=== PATIENT | male | born 1965 | race Hispanic/Latino ===

== ENCOUNTER 2019-04-21 11:17 | Day surgery (SDC) | payer BC ==
--- NOTE | 2019-04-20 10:38 | EKG ---
Test Date: 2019-04-19 Test Time: 15:29:58 Client Services Vice President: MERON MEASUREMENT RESULTS: Intervals: Rate: 83 AL: 124 QRSD: 90 QT: 352 QTc: 413 Mcgregor: P: 46 AL: 124 QRS: 16 T: 12 INTERPRETIVE STATEMENTS: Normal sinus rhythm Minimal voltage criteria for LVH, may be normal variant Borderline ECG No previous ECG available for comparison Electronically Signed On 04-20-19 10:38:10 CDT by Rajendra Cole
--- OUTSIDE RECORDS SUMMARY | 2019-04-21 11:23 | XMS REPORT | Clinical Summary ---
:1965 Author Organization [facility] Address [address] [place] [address] Care Team Providers Name Role Phone Bettina Oliver MD Primary Care Provider Allergies No Known Allergies Medications Medication Sig Dispensed Refills Start Date End Date Status fluticasone 1 spray by 0 Active (FLONASE) 50 Each Nare mcg/actuation nasal route 2 (two) spray times a day. cetirizine Take 10 mg by 0 Active (ALLER-MERON) 10 MG mouth daily. tablet metoprolol tartrate TAKE ONE 60 tablet 0 02/11/2018 Active (LOPRESSOR) 25 mg TABLET BY tablet MOUTH TWICE DAILY losartan-hydrochlor TAKE 1 TABLET 30 tablet 0 05/10/2018 05/10/2019 Active othiazide (HYZAAR) BY MOUTH 50-12.5 mg per DAILY tabletIndications: Essential hypertension losartan-hydrochlor Take 1 tablet 30 tablet 11 04/30/2017 05/10/2018 Discontinued othiazide (HYZAAR) by mouth 50-12.5 mg per daily. 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/2017 Overview: Overview: s/p inh treatment Hypertension 04/30/2017 Prediabetes 10/25/2015 Recurrent low back pain 07/19/2009 Allergic rhinitis due to pollen 07/05/2008 Encounters Date Type Specialty Care Team Description 05/26/2018 Refill Family Medicine Bettina Oliver MD 05/10/2018 Refill Family Medicine Bettina Oliver MD hypertension 04/25/2018 Hospital Encounter Sleep Medicine Leia Ordoñez MD 04/21/2018 Transcribe Orders Sleep Medicine Leia Ordoñez Obstructive sleep MD Karen apnea syndrome (Primary Dx) after 04/20/2018 Immunizations Name Dates Previously Given Next Due INFLUENZA QUAD 08/04/2016, 07/16/2012, 07/11/2011, 07/19/2009, 07/05/2008 INFLUENZA QUAD PF 07/05/2013 Influenza, Quadrivalent 07/04/2017, 07/09/2010 TD Preservative Free 12/20/1999 Tdap 07/19/2009 Family History Medical History Relation Name Comments Cancer Father ? type Alzheimer's disease Mother Asthma Mother Hypertension Mother Relation Name Status Comments Father Alive Mother (Age 87) natural causes Social History Tobacco Use Types Packs/Day Years Used Date Former Smoker Quit: 04/2017 Smokeless Tobacco: Never Used Tobacco Cessation: Counseling Given: Yes Comments: social smoker Sex Assigned at Date Recorded Not on file Job Start Date Occupation Industry Not on file Not on file Not on file Travel History Travel Start Travel End No recent travel history available. Last Filed Vital Signs Not on file Plan of Treatment Health Maintenance Due Date Last Done Comments COLONOSCOPY SCREENING 2013 SHINGLES VACCINES (#1) 2013 INFLUENZA VACCINE 04/28/2019 07/04/2017, 08/04/2016, 07/05/2013, Additional history exists Procedures Procedure Name Priority Date/Time Associated Diagnosis Comments GENERAL SLEEP STUDY Routine 05/03/2018 8:38 AM CDT Obstructive sleep apnea syndrome after 04/20/2018 Results General sleep study (05/03/2018 8:38 AM CDT) Specimen Narrative Performed At after 04/20/2018 Advance Directives Patient has advance care planning documents on file. For more information, please contact:[place] [address]
[2019-04-21] MEDS: OXYMETAZOLINE HCL 0.05% 15ML NAS ONE ×3 (11:30→11:47)
[2019-04-21] MEDS ORDERED: Ringers Lactate 1,000 ML IV ONE (11:42)
[2019-04-21] MEDS ORDERED: MIDAZOLAM HCL 2 MG/2 ML INJ ONE (12:00)
[2019-04-21] MEDS ORDERED: LIDOCAINE 1% MPF 5 ML VIAL ONE (12:00)
[2019-04-21] MEDS ORDERED: PROPOFOL 200 MG/20 ML VIAL IV ONE (12:00)
[2019-04-21] MEDS ORDERED: ROCURONIUM 50 MG/5 ML VIAL IV ONE (12:00)
[2019-04-21] MEDS ORDERED: NS 0.9% VIAL 10 ML ONE (12:01)
[2019-04-21] MEDS ORDERED: FENTANYL CITR 250 MCG/5 ML ONE (12:01)
[2019-04-21] MEDS ORDERED: VECURONIUM 10 MG/VIAL IV ONE (12:02)
[2019-04-21] MEDS ORDERED: LIDOCAINE 1% W/EPI 1:100,000 10 ML VIAL ONE (12:10)
[2019-04-21] MEDS ORDERED: OXYMETAZOLINE HCL 0.05% 15ML NAS ONE ×2 (12:16→12:17)
[2019-04-21] MEDS ORDERED: NA CHLORIDE 0.9% 250 ML ONE (12:17)
[2019-04-21] MEDS ORDERED: LABETALOL HCL 100 MG/20 ML ONE (12:59)
[2019-04-21] MEDS ORDERED: KETOROLAC 30 MG/ML INJ ONE (13:50)
[2019-04-21] MEDS ORDERED: GLYCOPYRROLATE 0.2 MG/ML SYR ONE ×2 (13:50)
[2019-04-21] MEDS ORDERED: NEOSTIGMINE 1 MG/ML -10 ML VIAL ONE (14:07)
[2019-04-21] MEDS ORDERED: ONDANSETRON 4 MG/2 ML VIAL ONE (14:07)
[2019-04-21] MEDS ORDERED: SUCCINYLCHOLINE 20 MG/ML (10 ML) IV ONE (15:23)
[2019-04-21] MEDS ORDERED: ACETAMINOPHEN 500 MG TAB ONE (15:31)
--- NOTE | 2019-04-21 17:42 | OP ---
Date of Procedure: 04/21/2019 Surgeon: Luisa Nicole MD Preoperative Diagnosis: Chronic maxillary ethmoid and frontal sinusitis. Postoperative Diagnosis: Chronic maxillary ethmoid and frontal sinusitis. Procedure: Bilateral nasal endoscopy with maxillary antrostomy, anterior ethmoidectomy, and frontal sinusotomy with use of CT image navigation extradural using the [employer] system. Indication For Procedure: Mr. Dixon is a 53-year-old male, who presented with ear and sinus complai nts. 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 Post treatment imaging revealed a very narrow and obstruction of the ostiomeatal complex, partial opacification of the ethmoid sinuses, and opacificat ion of the bilateral frontal recess. He had moderate septal deviation but septoplasty was not requir ed. The risks, benefits, and alternatives to the procedure were discussed with the patient and he op damian for surgery given failure of medical therapy. Description Of Procedure: The patient was brought to the operating room. He was placed under genera l anesthesia via oral endotracheal tube. The head of bed was turned to 90 degrees. The patient's na shantell cavity was packed with Afrin-soaked pledgets. The nasal hairs were trimmed and the [employer] head piece was secured to the patient's forehead. The post treatment CT scan was loaded into the system a nd surface matching within the laser pointer was used to register the system. Accuracy was confirmed by [id number] matching including the tip of the nose, the base of the columella, the glabella, a nd the medial and lateral canthi. Accuracy was felt to be excellent. The pledgets were removed from the nose and a 0-degree endoscope was used to perform bilateral nasal endoscopy. The right middle t urbinate was medialized with a [place] and the uncinate process was removed using backbiter and 90-degr ee Blakesley. The maxillary antrum was enlarged using a 90-degree Blakesley. The mucosa within the sinus was quiet without significant inflammation, infection, edema, or polyps. Afrin-soaked pledgets were applied and a similar procedure was performed on the left side. The maxillary antrostomy was s omewhat smaller on this side, but adequate opening was created and attention was then turned to the e thmoids. The straight navigation suction was used during dissection of the ethmoids to aid in identi fication of the lamina papyracea, as well as the skull base. A curette was used to incise the ethmoi d bulla and 45 degree Blakesley was used to remove bony partitions. Using the 0, 30, and 70 degree e ndoscopes, the anterior ethmoid cavity was carefully dissected with removal of bony partitions and in flamed mucosa. The curved navigation suction was used for better identification along the skull base and identification of the frontal recess. The entellus balloon device was used to dilate the fronta l recess, which was located more medially than anticipated. A 70 degree scope along with a front to back and [id number] Giraffe forceps were used to remove inflamed mucosa and bony partitions from th e frontal recess in order to create an adequate opening. A similar procedure was then performed on t he right side. The anterior ethmoid partitions were removed without difficulty and the frontal reces s was dilated. With the balloon device, front to back and [id number] Giraffe forceps were then use d in connection with a 70 degree endoscope in order to remove bony partitions and inflamed mucosa cre ating an adequate opening up into the frontal sinus. The patient's sinus cavity was packed with Afri n-soaked pledgets for several minutes to aid in hemostasis. After removal bleeding and oozing was mi nimal. The propel mini steroid eluting stent was then placed within the ethmoid cavity bilaterally a nd a piece of the xerogel was cut in half and a piece was placed in each of the ethmoid cavities. Th e xerogel was then saturated with saline to aid in did later dissolution. The nasopharynx was thorou ghly suctioned. The nasal cavities were re-examined and bleeding was minimal. The patient was then returned to care of anesthesia for awakening extubation in the operating room, which proceeded withou t difficulty. Complications: None. Disposition: Patient will be discharged home later today in the care of his family and follow up annabelle Nicole in approximately 10 days for routine postoperative care. JW/MARSHALL Voice ID: [id number] Report ID: [id number]
== END 2019-04-21 16:15 | disposition home or self-care (01) ==
LOC: OR 11:17
PROVIDERS: ATTEND Otolaryngology
PROC: 09BU8ZZ Excision of Right Ethmoid Sinus, Via Natural or Artificial Opening Endoscopic (ICD-10-PCS; 2019-04-21)
PROC: 8E09XBZ Computer Assisted Procedure of Head and Neck Region (ICD-10-PCS; 2019-04-21)
PROC: 09BT8ZX Excision of Left Frontal Sinus, Via Natural or Artificial Opening Endoscopic, Diagnostic (ICD-10-PCS; 2019-04-21)
PROC: 09BQ8ZX Excision of Right Maxillary Sinus, Via Natural or Artificial Opening Endoscopic, Diagnostic (ICD-10-PCS; 2019-04-21)
PROC: 09BR8ZX Excision of Left Maxillary Sinus, Via Natural or Artificial Opening Endoscopic, Diagnostic (ICD-10-PCS; 2019-04-21)
PROC: 09B Ear, Nose, Sinus, Excision (ICD-10-PCS; 2019-04-21)
PROC: 8E09XBG Computer Assisted Procedure of Head and Neck Region, With Computerized Tomography (ICD-10-PCS; 2019-04-21)
PROC: 09BV8ZZ Excision of Left Ethmoid Sinus, Via Natural or Artificial Opening Endoscopic (ICD-10-PCS; principal; 2019-04-21 12:30)
DX: J32.2 Chronic ethmoidal sinusitis (principal); J32.1 Chronic frontal sinusitis; I10 Essential (primary) hypertension; E66.9 Obesity, unspecified; Z68.36 Body mass index [BMI] 36.0-36.9, adult; Z79.899 Other long term (current) drug therapy; Z87.891 Personal history of nicotine dependence
CPT/HCPCS: 88304; 88311; 93005; J0330; J2250; J2405; J2704; J2710; J3010